=== PATIENT | male | born 1970 | race Caucasian/White ===

== ENCOUNTER 2018-03-27 11:38 | Inpatient (IN) | payer OTHER ==
[~2018-03-27] VITALS: Ht 188 cm; Wt 63.5 kg
--- NOTE | 2018-03-27 23:54 | HHI.HP ---
HPI Service [facility] Primary Care Physician Unknown Admission Diagnosis Diagnoses: Chief Complaint: Empyema Travel History International Travel<30 Days: No Contact w/Intl Traveler <30 Da: No History of Present Illness 47-year-old male with a history of asthma, COPD presented on 03/15 [facility] with complaints of chest pain that radiated to left armpit for a duration of 2 weeks. Patient was found to have a mass on a CT scan of the chest that was a collection of fluid 5 cm and found to be infectious. A pigtail catheter was placed by CT guided for drainage of an abscess, patient was treated with Levaquin, vancomycin and cefepime for positive mycoplasma and pseudomonas. Vancomycin was discontinued on 03/23. Patient was transferred to [place] for a possible cardiothoracic consult. Patient currently denies any fevers or chills and states if he stays on top of his pain medication he is pain -free. Review of Systems Except as stated in HPI: all other systems reviewed are Neg Past Family Social History Past Medical History Asthma COPD Past Surgical History Left ankle surgery Allergies: Coded Allergies: No Known Allergies (Unverified , 03/27/18) Family History Patient denies any family history no heart disease or cancer. Social History Tobacco use: 1 PPD Alcohol use: 18 pack a day Illicit drug use: Uri Physical Exam Physical Exam GENERAL: This is a well-nourished, well-developed patient, in no apparent distress. SKIN: No rashes, ecchymoses or lesions. Cool and dry. HEAD: Atraumatic. Normocephalic. No temporal or scalp tenderness. EYES: Pupils equal round and reactive. Extraocular motions intact. CARDIOVASCULAR: Regular rate and rhythm without murmurs, gallops, or rubs. Left chest wall tenderness RESPIRATORY: Clear to auscultation. Breath sounds equal bilaterally. No wheezes , rales, or rhonchi. GASTROINTESTINAL: Abdomen soft, non-tender, nondistended. MUSCULOSKELETAL: Extremities without clubbing, cyanosis, or edema. No joint tenderness, effusion, or edema noted. NEUROLOGICAL: Awake and alert. Normal speech. Caprini VTE Risk Assessment Caprini VTE Risk Assessment: No/Low Risk (score <= 1) Caprini Risk Assessment Model Point Value = 1 Point Value = 2 Point Value = 3 Point Value = 5 Age 41-60 Minor surgery BMI > 25 kg/m2 Swollen legs Varicose veins or History of unexplained or recurrent spontaneous Oral contraceptives or hormone replacement Sepsis (< 1 month) Serious lung disease, including pneumonia (< 1 month) Abnormal pulmonary function Acute myocardial infarction Congestive heart failure (< 1 month) History of inflammatory bowel disease Medical patient at bed rest Age 61-74 Arthroscopic surgery Major open surgery (> 45 min) Laparoscopic surgery (> 45 min) Malignancy Confined to bed (> 72 hours) Immobilizing plaster cast Central venous access Age >= 75 History of VTE Family history of VTE Factor V Leiden Prothrombin [id number] Lupus anticoagulant Anticardiolipin antibodies Elevated serum homocysteine Heparin-induced thrombocytopenia Other congenital or acquired thrombophilia Stroke (< 1 month) Elective arthroplasty Hip, pelvis, or leg fracture Acute spinal cord injury (< 1 month) Prophylaxis Regimen Total Risk Factor Score Risk Level Prophylaxis Regimen 0-1 Low Early ambulation 2 Moderate Order ONE of the following: *Sequential Compression Device (SCD) *Heparin 5000 units SQ BID 3-4 Higher Order ONE of the following medications: *Heparin 5000 units SQ TID *Enoxaparin/Lovenox 40 mg SQ daily (WT < 150 kg, CrCl > 30 mL/min) *Enoxaparin/Lovenox 30 mg SQ daily (WT < 150 kg, CrCl > 10-29 mL/min) *Enoxaparin/Lovenox 30 mg SQ BID (WT < 150 kg, CrCl > 30 mL/min) AND/OR *Sequential Compression Device (SCD) 5 or more Highest Order ONE of the following medications: *Heparin 5000 units SQ TID (Preferred with Epidurals) *Enoxaparin/Lovenox 40 mg SQ daily (WT < 150 kg, CrCl > 30 mL/min) *Enoxaparin/Lovenox 30 mg SQ daily (WT < 150 kg, CrCl > 10-29 mL/min) *Enoxaparin/Lovenox 30 mg SQ BID (WT < 150 kg, CrCl > 30 mL/min) AND *Sequential Compression Device (SCD) Assessment and Plan Assessment and Plan 47-year-old male with a history of asthma, COPD presented on 03/15 [facility] with complaints of chest pain that radiated to left armpit for a duration of 2 weeks. Patient was found to have a mass on a CT scan of the chest that was a collection of fluid 5 cm and found to be infectious. Empyema, suspected, patient was positive for Pseudomonas and mycoplasma Outpatient CT reveals a large fluid collection in the left chest. -Continue IV antibiotics cefepime and p.o. Levaquin -Consult infectious disease appreciate recommendations -Cardiothoracic surgery consult to be placed in a.m. -Pain management with p.o. [place] COPD, chronic, not in exacerbation -Duo nebs as needed Tobacco and alcohol abuse, chronic -Encouraged to quit -Continue Ativan p.o. for agitation -Nicotine patch DVT prophylaxis: SCDs Discussed Condition With Patient and RN Physician Certification 2 Midnight Certification Type: Admission for Inpatient Services Order for Inpatient Services The services are ordered in accordance with Medicare regulations or non- Medicare payer requirements, as applicable. In the case of services not specified as inpatient-only, they are appropriately provided as inpatient services in accordance with the 2-midnight benchmark. Estimated LOS (days): 2 days is the estimated time the patient will need to remain in the hospital, assuming treatment plan goals are met and no additional complications. Post-Hospital Plan: Home Mary Tao Mar 27, 2018 23:54
[2018-03-28] VITALS (8 sets, daily range): BP systolic 122–145; BP diastolic 68–88; PULSE 75–101; RESP 17–20; TEMP 97.2–98.4; O2SAT 94–99
[2018-03-28] MEDS ORDERED: NALOXONE HCL 0.4 MG/ML AMP IV PUSH PRN
[2018-03-28] MEDS ORDERED: SODIUM CHLORIDE 0.9% FLUSH 10 ML FLUSH IV FLUSH PRN
[2018-03-28] MEDS ORDERED: LORazepam 1 MG TAB PO PRN (00:45)
[2018-03-28] MEDS: ACETAMINOPHEN/HYDROcodone 325 MG/10 MG TAB PO PRN ×6 (01:42→19:58)
[2018-03-28] MEDS: LORazepam 1 MG TAB PO PRN ×5 (01:42→19:58)
[2018-03-28] MEDS: CEFEPIME INJ 2,000 MG in SODIUM CHLORIDE 0.9% INJ 100 ML IV SCH ×3 (01:43→22:01)
[2018-03-28] MEDS ORDERED: RESP: ALBUTEROL 2.5 MG/IPRATROPIUM 0.5 MG NEB (PRN) NEB (02:00)
[2018-03-28 05:32] LABS: AUTOMATED NEUTROPHIL # 3.6 TH/MM3 (1.8-7.7); BASOPHIL # 0.1 TH/MM3 (0-0.2); BASOPHIL % 1.3 % (0.0-2.0); EOSINOPHIL # 0.8 TH/MM3 (0-0.4); EOSINOPHIL % 10.6 % (0.0-4.0); HEMATOCRIT 41.8 % (39.0-51.0); HEMOGLOBIN 14.1 GM/DL (13.0-17.0); LYMPH % 25.5 % (9.0-44.0); LYMPHOCYTE # 1.9 TH/MM3 (1.0-4.8); MEAN CELL VOLUME 98.6 FL (80.0-100.0); MEAN CORPUSCULAR HEMOGLOBIN 33.1 PG (27.0-34.0); MEAN CORPUSCULAR HGB CONC 33.6 % (32.0-36.0); MEAN PLATELET VOLUME 8.8 FL (7.0-11.0); MONO % 14.9 % (0.0-8.0); MONOCYTE # 1.1 TH/MM3 (0-0.9); NEUT % 47.7 % (16.0-70.0); PLATELET COUNT 358 TH/MM3 (150-450); RED BLOOD COUNT 4.24 MIL/MM3 (4.50-5.90); RED CELL DISTRIBUTION WIDTH 13.2 % (11.6-17.2); WHITE BLOOD COUNT 7.6 TH/MM3 (4.0-11.0)
[2018-03-28 05:57] LABS: BICARBONATE 24.2 MEQ/L (21.0-32.0); CREATININE 0.52 MG/DL (0.60-1.30)
[2018-03-28] MEDS: LEVOFLOXACIN 500 MG TAB PO SCH (10:05)
[2018-03-28] MEDS: NICOTINE 14 MG/24 HR PATCH T-DERMAL SCH (10:06)
[2018-03-28] MEDS: REMOVE OLD PATCH T-DERMAL SCH (10:06)
[2018-03-28] MEDS: SODIUM CHLORIDE 0.9% FLUSH 10 ML FLUSH IV FLUSH SCH ×2 (11:01→19:59)
--- NOTE | 2018-03-28 11:17 | HHI.PR ---
Subjective Remarks Patient reports that left-sided chest pain continues. Requests increase in pain meds. Denies any nausea or vomiting. Reports shortness of breath has improved. Patient reports constipation. Most recent bowel movement 2 days ago denies abdominal pain. Patient requested regular diet Objective Vital Signs Date Time Temp Pulse Resp B/P (MAP) Pulse Ox O2 Delivery O2 Flow Rate FiO2 03/28/18 04:00 97.6 77 18 122/73 (89) 94 03/28/18 00:37 97.2 85 20 128/78 (95) 99 I/O 03/27/18 03/27/18 03/27/18 03/28/18 03/28/18 03/28/18 07:00 15:00 23:00 07:00 15:00 23:00 Intake Total 460 ml Balance 460 ml Intake Oral 360 ml IV Total 100 ml # Voids 2 # Bowel Movements 0 Result Diagram: 03/28/18 0459 03/28/18 0459 Objective Remarks GENERAL: Patient walking in room. Appears comfortable. SKIN: Warm and dry. HEAD: Normocephalic. EYES: No scleral icterus. No injection or drainage. NECK: Supple, trachea midline. No JVD. CARDIOVASCULAR: Regular rate and rhythm without murmurs, gallops, or rubs. RESPIRATORY: Intermittent wheezing on the left. No accessory muscle use. GASTROINTESTINAL: Abdomen soft, non-tender, nondistended. MUSCULOSKELETAL: No cyanosis, or edema. BACK: Nontender without obvious deformity. No CVA tenderness. A/P Assessment and Plan 47-year-old male with a history of asthma, COPD presented on 03/15 [facility] with complaints of chest pain that radiated to left armpit for a duration of 2 weeks. Patient was found to have a mass on a CT scan of the chest that was a collection of fluid 5 cm and found to be infectious. //Empyema, suspected, patient was positive for Pseudomonas and mycoplasma Outpatient CT reveals a large fluid collection in the left chest. -Continue IV antibiotics cefepime and p.o. Levaquin -Consult infectious disease appreciate recommendations -Cardiothoracic surgery consult to be placed in a.m. -Pain management with p.o. [place] = Pain meds increased as requested. Consulted cardiothoracic surgery. Consult infectious disease for ongoing IV antibiotics. Appreciate tanning consultant assistance. //Patient reports constipation. Laxatives ordered. //COPD, chronic, not in exacerbation -Duo nebs as needed //Tobacco and alcohol abuse, chronic -Encouraged to quit -Continue Ativan p.o. for agitation -Nicotine patch = Patient counseled on cessation. DVT prophylaxis: SCDs Discharge Planning Patient is self-pay. Continues on IV antibiotics We will need ID and cardiothoracic surgery clearance Patient is a transfer from [facility] Fredo Chambers MD Mar 28, 2018 11:17
--- NOTE | 2018-03-28 17:36 | PD.ID.CON ---
History of Present Illness Service Infectious disease Consult Requested By Dr Chambers Reason for Consult Evaluation and management of left upper lobe lung abscess/empyema Primary Care Physician Unknown Diagnoses: History of Present Illness Mr. Irving is a 47-year-old male with long-standing history of smoking, active smoker with known history of COPD, bullous emphysema, chronic alcoholism and heavy 8-10 beers per day, known history of bronchial asthma, intermittent steroid use. With this background patient presented to [facility] with progressive dyspnea, left-sided chest pain radiating into his arm exacerbated in the last 2 weeks prior to admission patient reported at that time that his pain was constant aggravated by coughing and deep breathing. He also complained of subjective fever and chills at that time. Patient underwent a CT chest which did not reveal any emboli but there was a 6 cm left upper lobe mass posteriorly with chest wall invasion compatible with an infected bullae or abscess versus neoplasm. The patient underwent a CT-guided drainage tube placement successfully with purulent drainage extracted with initial culture revealing heavy growth of pseudomonas aeruginosa sensitive to cefepime and Levaquin. Patient continued to do well and when his chest tube was removed repeat CT of the chest was performed which showed remnant disease. Patient was transferred to [facility] for cardiothoracic surgery evaluation for decortication if possible of this lung mass. In addition records reveal that his mycoplasma serology was positive IgM antibody. Patient reports that he had a CT-guided drainage but does not seem to remember having a bronchoscopy at the other hospital. Infectious diseases consulted for evaluation and management of left upper lobe lung mass and empyema. Review of Systems Constitutional: COMPLAINS OF: Fever, Chills, DENIES: Diaphoretic episodes, Fatigue, Weight gain, Weight loss, Dizziness, Change in appetite, Night Sweats Endocrine: DENIES: Heat/cold intolerance, Polydipsia, Polyuria, Polyphagia Eyes: DENIES: Blurred vision, Diplopia, Eye inflammation, Eye pain, Vision loss , Photosensitivity, Double Vision Ears, nose, mouth, throat: DENIES: Tinnitus, Hearing loss, Vertigo, Nasal discharge, Oral lesions, Throat pain, Hoarseness, Ear Pain, Running Nose, Epistaxis, Sinus Pain, Toothache, Odynophagia Respiratory: DENIES: Apneas, Cough, Snoring, Wheezing, Hemoptysis, Sputum production, Shortness of breath Cardiovascular: COMPLAINS OF: Chest pain, DENIES: Palpitations, Syncope, Dyspnea on Exertion, PND, Lower Extremity Edema, Orthopnea, Claudication Gastrointestinal: DENIES: Abdominal pain, Black stools, Bloody stools, Constipation, Diarrhea, Nausea, Vomiting, Difficulty Swallowing, Anorexia Genitourinary: DENIES: Sexual dysfunction, Urinary frequency, Urinary incontinence, Urgency, Hematuria, Dysuria, Nocturia, Penile Discharge, Testicular Pain, Testicular Swelling Musculoskeletal: DENIES: Joint pain, Muscle aches, Stiffness, Joint Swelling, Back pain, Neck pain Integumentary: DENIES: Abnormal pigmentation, Nail changes, Pruritus, Rash Hematologic/lymphatic: DENIES: Bruising, Lymphadenopathy Immunologic/allergic: DENIES: Eczema, Urticaria Neurologic: DENIES: Abnormal gait, Headache, Localized weakness, Paresthesias, Seizures, Speech Problems, Tremor, Poor Balance Psychiatric: DENIES: Anxiety, Confusion, Mood changes, Depression, Hallucinations, Agitation, Suicidal Ideation, Homicidal Ideation, Delusions Except as stated in HPI: all other systems reviewed are Neg Past Family Social History Allergies: Coded Allergies: No Known Allergies (Unverified , 03/27/18) Past Medical History Asthma COPD Alcohol abuse Tobacco abuse Pseudomonas empyema Positive mycoplasma serology Past Surgical History Ankle surgery CT-guided aspiration of the left upper lobe abscess. Reported Medications Mar from [facility] reviewed patient was on cefepime and Levaquin. It also appears that he may have been on vancomycin at some point. Active Ordered Medications Current Medications Medications (Trade) Dose Ordered Sig/Keyla Route Start Time Stop Time Status Last Admin (NS Flush) 2 ml UNSCH PRN IV FLUSH 03/28/18 00:00 (NS Flush) 2 ml BID IV FLUSH 03/28/18 09:00 03/28/18 11:01 (Narcan Inj) 0.4 mg UNSCH PRN IV PUSH 03/28/18 00:00 ([place] 10-325 Mg) 1 tab Q4H PRN PO 03/28/18 00:45 03/28/18 15:15 Cefepime HCl 2000 mg/Sodium Chloride 100 ml @ 200 mls/hr Q12H IV 03/28/18 02:00 03/28/18 14:10 (Levaquin) 500 mg DAILY PO 03/28/18 09:00 03/28/18 10:05 (Ativan) 1 mg Q4H PRN PO 03/28/18 01:15 03/28/18 15:15 (Duoneb Neb) 1 ampule Q4HR NEB PRN NEB 03/28/18 02:00 (Habitrol 14 Mg Patch.24 Hr) 1 patch DAILY T-DERMAL 03/28/18 09:00 03/28/18 10:06 Miscellaneous Information 1 DAILY T-DERMAL 03/28/18 09:00 03/28/18 10:06 (Roxicodone) 5 mg Q4H PRN PO 03/28/18 11:30 Family History Reviewed and noncontributory to current infectious disease problem. Social History Heavy's cigarette smoking for many years did not quantify. Drinks approximately 10-12 beers every day for many years. Used to live in an until recently when he moved with his girlfriend. He does not work at the present time. Physical Exam Vital Signs Vital Signs Date Time Temp Pulse Resp B/P (MAP) Pulse Ox O2 Delivery O2 Flow Rate FiO2 03/28/18 12:00 98.0 92 17 144/88 (106) 95 03/28/18 09:30 101 03/28/18 08:00 98.4 91 17 128/68 (88) 96 03/28/18 04:00 97.6 77 18 122/73 (89) 94 03/28/18 00:37 97.2 85 20 128/78 (95) 99 Physical Exam GENERAL: This is a well-nourished, well-developed patient, in no apparent distress. SKIN: No rashes, ecchymoses or lesions. Cool and dry. HEAD: Atraumatic. Normocephalic. No temporal or scalp tenderness. EYES: Pupils equal round and reactive. Extraocular motions intact. No scleral icterus. No injection or drainage. ENT: Nose without bleeding, purulent drainage or septal hematoma. Throat without erythema, tonsillar hypertrophy or exudate. Uvula midline. Airway patent. NECK: Trachea midline. No JVD or lymphadenopathy. Supple, nontender, no meningeal signs. CARDIOVASCULAR: Regular rate and rhythm without murmurs, gallops, or rubs. RESPIRATORY: Clear to auscultation. Breath sounds equal bilaterally. No wheezes , rales, or rhonchi. GASTROINTESTINAL: Abdomen soft, non-tender, nondistended. No hepato-splenomegaly , or palpable masses. No guarding. MUSCULOSKELETAL: Extremities without clubbing, cyanosis, or edema. No joint tenderness, effusion, or edema noted. No calf tenderness. Negative Homans sign bilaterally. NEUROLOGICAL: Awake and alert. Cranial nerves II through XII intact. Motor and sensory grossly within normal limits. Five out of 5 muscle strength in all muscle groups. Normal speech. Psych cooperative IV line sites with no evidence of infection. Laboratory Laboratory Tests Test 03/28/18 04:59 White Blood Count 7.6 Red Blood Count 4.24 Hemoglobin 14.1 Hematocrit 41.8 Mean Corpuscular Volume 98.6 Mean Corpuscular Hemoglobin 33.1 Mean Corpuscular Hemoglobin Concent 33.6 Red Cell Distribution Width 13.2 Platelet Count 358 Mean Platelet Volume 8.8 Neutrophils (%) (Auto) 47.7 Lymphocytes (%) (Auto) 25.5 Monocytes (%) (Auto) 14.9 Eosinophils (%) (Auto) 10.6 Basophils (%) (Auto) 1.3 Neutrophils # (Auto) 3.6 Lymphocytes # (Auto) 1.9 Monocytes # (Auto) 1.1 Eosinophils # (Auto) 0.8 Basophils # (Auto) 0.1 CBC Comment DIFF FINAL Differential Comment Blood Urea Nitrogen 8 Creatinine 0.52 Random Glucose 81 Calcium Level 9.0 Sodium Level 142 Potassium Level 4.3 Chloride Level 109 Carbon Dioxide Level 24.2 Anion Gap 9 Estimat Glomerular Filtration Rate 170 Result Diagram: 03/28/18 0459 03/28/18 0459 Imaging Last Impressions Chest X-Ray 03/28/18 0000 Signed Impressions: CONCLUSION: 5 cm mass at left lung apex. Further evaluation with chest CT with contrast rec ommended. Assessment and Plan Assessment and Plan Left lung mass abscess. s/p IR guided drainage. Pseudomonas on cultures Empyema Necessitans. ? Lung mass. Persistent left lung mass concerning for cancer given extensive history of smoking COPD with bullous changes Extensive smoking history Alcoholism possible aspiration pneumonia. Recommendations: Continue cefepime IV increased to pseudomonal dose Continue Levaquin Consult cardiothoracic surgery Chest x-ray stat CT chest with IV contrast to help delineate the size of abscess and chest wall invasion etc as reported on outside hospital imaging. OSH imaging split into multiple single page single slice imaging difficult to appreciate without scrolling the extent of the disease. Patient consented to HIV Check HIV antibody screen Check Hepatitis profile. 2D ECHO to be officially reviewed by our ECHO department. Or obtain official paper report from [facility]. Will follow prn over the weekend. Please call sooner if any clinical changes in the interim. dw patient. Girlfriend in room who reports she is a Communication Equipment Mechanic (remains to be confirmed) Melia Awad MD Mar 28, 2018 17:36
--- NOTE | 2018-03-28 17:54 | RADRPT ---
EXAM DATE: 03/28/2018 5:40 PM EDT AGE/SEX: 47 years / Male INDICATIONS: Shortness of breath. CLINICAL DATA: This is the patient's initial encounter. Patient reports that signs and symptoms have been present for 1 day and indicates a pain score of 0/10. MEDICAL/SURGICAL HISTORY: Asthma. Chronic obstructive pulmonary disease. Smoker. None. COMPARISON: No prior exams available for comparison. FINDINGS: There is a 5 cm mass in the left lung apex. There is underlying emphysema. Heart size normal. Small p leural effusions. CONCLUSION: 5 cm mass at left lung apex. Further evaluation with chest CT with contrast recommended. Electronically signed by: Ten Sousa MD 03/28/2018 5:53 PM EDT
[2018-03-28 19:31] LABS: ALBUMIN 3.3 GM/DL (3.4-5.0); DIRECT BILIRUBIN ADULT 0.1 MG/DL (0.0-0.2)
[2018-03-28] MEDS ORDERED: IOHEXOL 350 MG/ML 10 ML VIAL (for RAD DIAG) IVCONTRAST ONE (19:31)
[2018-03-28 19:33] LABS: INDIRECT BILIRUBIN 0.1 MG/DL (0.0-0.8); TOTAL BILIRUBIN ADULT 0.2 MG/DL (0.2-1.0); TOTAL PROTEIN 7.1 GM/DL (6.4-8.2)
--- NOTE | 2018-03-28 20:01 | RADRPT ---
EXAM DATE: 03/28/2018 7:34 PM EDT AGE/SEX: 47 years / Male INDICATIONS: Evaluate lung abscess. CLINICAL DATA: This is the patient's initial encounter. Patient reports that signs and symptoms have been present for 1 month and indicates a pain score of 4/10. MEDICAL/SURGICAL HISTORY: Cardiovascular disease. Asthma. Chronic obstructive pulmonary disease. None. RADIATION DOSE: 5.09 CTDI (mGy) COMPARISON: No prior exams available for comparison. EXTERNAL: TECHNIQUE: Multiple contiguous axial images were obtained through the chest during bolus infusion of 65 ml Omnipaque 350 (iohexol) nonionic water-soluble contrast as a single exam dose. Images were obtained in suspended respiration using multiple row detector helical technique. Using automated exp osure control and adjustment of the mA and/or kV according to patient size, radiation dose was kept a s low as reasonably achievable to obtain optimal diagnostic quality images. DICOM format image data is available electronically for review and comparison. FINDINGS: There is a mass at the left lung apex measuring up to 6.2 x 7.9 cm. Mass appears partially necrotic. There is extension into the extrapleural space and probably also into the intercostal space between t he third and fourth ribs posteriorly. There is centrilobular and apical bullous emphysema. There is a left AP window lymph node enlarged to 1.2 cm. There is also contralateral mediastinal adenopathy with an anterior right pretracheal lymph node measuring up to 1.8 x 0.8 cm and a prevascular lymph node measuring up to 11 mm. No pleural or pericardial effusion. No acute findings in the upper abdomen. No acute bony abnormaliti es. CONCLUSION: 1. Mass in left lung apex measuring up to 7.9 cm. Mildly enlarged ipsilateral and contralateral medi astinal lymph nodes, probably a stage III malignancy. There is some central tumor necrosis. There is centrilobular and apical bullous emphysema. 2. 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 Electronically signed by: Ten Sousa MD 03/28/2018 8:00 PM EDT
[2018-03-29] VITALS (10 sets, daily range): BP systolic 116–138; BP diastolic 64–90; PULSE 70–97; RESP 17–19; TEMP 97.3–98.9; O2SAT 97–98
[2018-03-29] MEDS: LORazepam 1 MG TAB PO PRN ×6 (00:04→21:03)
[2018-03-29] MEDS: ACETAMINOPHEN/HYDROcodone 325 MG/10 MG TAB PO PRN ×6 (00:05→21:03)
[2018-03-29] MEDS: CEFEPIME INJ 2,000 MG in SODIUM CHLORIDE 0.9% INJ 100 ML IV SCH ×3 (05:09→22:00)
[2018-03-29] MEDS: NICOTINE 14 MG/24 HR PATCH T-DERMAL SCH (08:06)
[2018-03-29] MEDS: REMOVE OLD PATCH T-DERMAL SCH (08:08)
[2018-03-29] MEDS: LEVOFLOXACIN 500 MG TAB PO SCH (08:09)
[2018-03-29] MEDS: SODIUM CHLORIDE 0.9% FLUSH 10 ML FLUSH IV FLUSH SCH ×2 (08:11→19:40)
[2018-03-29] MEDS ORDERED: ALBUTEROL SULFATE 90 MCG/ACT HFA 8 GM INHALER INH PRN (10:15)
--- NOTE | 2018-03-29 11:36 | PD.CAR.PN ---
CVT Progress Note Subjective/Hospital Course: Pt examined and chart reviewed. Findings discussed with patient and significant other. No further drainage procedure necessary. Needs biopsy of the left upper lobe mass to establish etiology. Consider IR evaluation. Objective: Vital Signs Date Time Temp Pulse Resp B/P (MAP) Pulse Ox O2 Delivery O2 Flow Rate FiO2 03/29/18 09:00 92 03/29/18 08:00 97.4 89 18 130/88 (102) 97 03/29/18 04:55 18 03/29/18 04:28 97.3 83 18 120/76 (91) 98 03/29/18 04:00 70 03/29/18 00:04 97.9 83 17 116/66 (83) 98 03/29/18 00:00 79 03/28/18 20:22 98.1 89 18 145/88 (107) 97 03/28/18 20:00 100 03/28/18 16:00 97.7 75 19 144/77 (99) 99 03/28/18 12:00 98.0 92 17 144/88 (106) 95 Result Diagram: 03/28/18 0459 03/28/18 0459 Garry Jeffery MD Mar 29, 2018 11:36
--- NOTE | 2018-03-29 11:39 | HHI.PR ---
Subjective Remarks Patient reports constipation is resolved. Reports breathing is stable, however did have some wheezing overnight, would like his rescue inhaler instead of receiving nebs. Reports chest pain is stable. Denies any nausea or vomiting. Objective Vital Signs Date Time Temp Pulse Resp B/P (MAP) Pulse Ox O2 Delivery O2 Flow Rate FiO2 03/29/18 09:00 92 03/29/18 08:00 97.4 89 18 130/88 (102) 97 03/29/18 04:55 18 03/29/18 04:28 97.3 83 18 120/76 (91) 98 03/29/18 04:00 70 03/29/18 00:04 97.9 83 17 116/66 (83) 98 03/29/18 00:00 79 03/28/18 20:22 98.1 89 18 145/88 (107) 97 03/28/18 20:00 100 03/28/18 16:00 97.7 75 19 144/77 (99) 99 03/28/18 12:00 98.0 92 17 144/88 (106) 95 I/O 03/28/18 03/28/18 03/28/18 03/29/18 03/29/18 03/29/18 07:00 15:00 23:00 07:00 15:00 23:00 Intake Total 460 ml 1225 ml 880 ml Output Total 550 ml Balance 460 ml 675 ml 880 ml Intake Oral 360 ml 1025 ml 780 ml IV Total 100 ml 200 ml 100 ml Output Urine Total 550 ml # Voids 2 2 # Bowel Movements 0 0 Result Diagram: 03/28/18 0459 03/28/18 0459 Objective Remarks GENERAL: Patient walking in room. Appears comfortable. SKIN: Warm and dry. HEAD: Normocephalic. EYES: No scleral icterus. No injection or drainage. NECK: Supple, trachea midline. No JVD. CARDIOVASCULAR: Regular rate and rhythm without murmurs, gallops, or rubs. RESPIRATORY: Intermittent wheezing bilaterally. No accessory muscle use. GASTROINTESTINAL: Abdomen soft, non-tender, nondistended. MUSCULOSKELETAL: No cyanosis, or edema. BACK: Nontender without obvious deformity. No CVA tenderness. A/P Assessment and Plan 47-year-old male with a history of asthma, COPD presented on 03/15 [facility] with complaints of chest pain that radiated to left armpit for a duration of 2 weeks. Patient was found to have a mass on a CT scan of the chest that was a collection of fluid 5 cm and found to be infectious. //Empyema, suspected, patient was positive for Pseudomonas and mycoplasma Outpatient CT reveals a large fluid collection in the left chest. -Continue IV antibiotics cefepime and p.o. Levaquin -Consult infectious disease appreciate recommendations -Cardiothoracic surgery consult to be placed in a.m. -Pain management with p.o. [place] = Pain meds increased as requested. Consulted cardiothoracic surgery. Consult infectious disease for ongoing IV antibiotics. Appreciate practice management consultant assistance. = 03/29. Continue antibiotics as per infectious disease. Discussed with cardiothoracic surgery. No significant fluid. Will proceed with CT-guided biopsy of left lung mass. //Patient reports constipation. Resolved after laxatives. //COPD, chronic, not in exacerbation -Duo nebs as needed. Rescue inhaler as needed. //Tobacco and alcohol abuse, chronic -Encouraged to quit -Continue Ativan p.o. for agitation -Nicotine patch = Patient counseled on cessation. DVT prophylaxis: SCDs Discharge Planning Patient is self-pay. Continues on IV antibiotics We will need ID and cardiothoracic surgery clearance Patient is a transfer from [facility] Hopefully after biopsy, if patient is stable can transfer back to [facility] Fredo Chambers MD Mar 29, 2018 11:39
--- NOTE | 2018-03-29 13:19 | MB ---
cc: Garry Jeffery MD DATE: 03/29/2018 REASON FOR CONSULTATION: Left lung empyema. HISTORY OF PRESENT ILLNESS: Mr. Irving is a 47-year-old gentleman transferred from [facility] for further evaluation at [place]. He presented with complaints of chest pain with radiation to the left armpit for 2-3 weeks. Following evaluation at [facility], he underwent a CT of the lung, which demonstrated a 5 cm mass, which was thought to be an infectious fluid loculation. He underwent percutaneous drainage there and was sent here for further management for treatment of empyema. Following admission here, he has undergone a repeat chest CT which to ok demonstrates a left upper lobe lung mass with an associated mediastinal adenopathy in the setting of severe bullous emphysema. No fluid loculations or additional fluid pockets are identified. PAST MEDICAL HISTORY: 1. Significant for asthma. 2. Chronic obstructive pulmonary disease. 3. Chronic nicotine use. 4. Chronic alcohol use. PAST SURGICAL HISTORY: Remarkable for ankle surgery, as well as a CT-guided aspiration of the fluid as described above. ALLERGIES: PATIENT REPORTS NO KNOWN DRUG ALLERGIES. SOCIAL HISTORY: Remarkable for heavy cigarette smoking for many years, 1-2 packs per day, as well as 12-18 beers a day. Denies any illicit drug use. FAMILY HISTORY: Noncontributory. HOME MEDICATIONS: None. REVIEW OF SYSTEMS: As above, all other parameters are negative. PHYSICAL EXAMINATION: VITAL SIGNS: Today he is 187 cm tall, weighs 64 kilos, blood pressure is 130/88 with a heart rate of 89, which is regular, respiratory rate is 18. He is afebrile. HEENT: Normocephalic, atraumatic. Pupils round and reactive. Extraocular muscles intact. NECK: No cervical lymphadenopathy, carotid bruits or JVD. CARDIOVASCULAR: Regular rate and rhythm. Normal S1, S2, without gallops, rubs, or murmurs. LUNGS: Clear to auscultation bilaterally with good air exchange. ABDOMEN: Soft, nontender, nondistended. Normoactive bowel sounds. No hepatosplenomegaly. EXTREMITIES: Bilateral lower extremity pulses are intact without cyanosis, clubbing or edema. No venous varicosities. NEUROLOGIC: Neurologically intact with no focal deficits. IMPRESSION: 1. Left upper lobe lung mass suspicious for underlying malignancy. 2. Mediastinal adenopathy. 3. Chronic nicotine use. 4. Chronic alcohol use. 5. Chronic obstructive pulmonary disease. 6. Bullous emphysema. PLAN: The CT findings as well as clinical findings were discussed in detail with the patient and his significant other. At this point, I do not see any further fluid collections or fluid in the left side that would require surgical drainage. The concern remains of an underlying malignancy represented by the large left upper lobe mass and mediastinal adenopathy. At this point my recommendation would be to consult interventional radiology for possible percutaneous biopsy of the left upper lobe mass and subsequent therapy depending upon the histologic findings. No surgical procedures planned at this time. Thank you for allowing me to participate in the care of this patient. MD BARRETT CannonK/TL , 11:41 AM , 01:17 PM
[2018-03-30] VITALS (9 sets, daily range): BP systolic 100–140; BP diastolic 68–89; PULSE 74–91; RESP 16–19; TEMP 97.7–98.5; O2SAT 96–98
[2018-03-30] MEDS: LORazepam 1 MG TAB PO PRN ×6 (01:00→22:28)
[2018-03-30] MEDS: ACETAMINOPHEN/HYDROcodone 325 MG/10 MG TAB PO PRN ×6 (01:01→22:28)
[2018-03-30] MEDS: CEFEPIME INJ 2,000 MG in SODIUM CHLORIDE 0.9% INJ 100 ML IV SCH ×3 (05:09→17:30)
[2018-03-30 07:42] LABS: AUTOMATED NEUTROPHIL # 3.9 TH/MM3 (1.8-7.7); BASOPHIL # 0.1 TH/MM3 (0-0.2); BASOPHIL % 1.4 % (0.0-2.0); EOSINOPHIL # 1.1 TH/MM3 (0-0.4); EOSINOPHIL % 13.8 % (0.0-4.0); HEMATOCRIT 42.4 % (39.0-51.0); HEMOGLOBIN 14.2 GM/DL (13.0-17.0); LYMPH % 21.7 % (9.0-44.0); LYMPHOCYTE # 1.8 TH/MM3 (1.0-4.8); MEAN CELL VOLUME 99.3 FL (80.0-100.0); MEAN CORPUSCULAR HEMOGLOBIN 33.3 PG (27.0-34.0); MEAN CORPUSCULAR HGB CONC 33.5 % (32.0-36.0); MONO % 14.5 % (0.0-8.0); MONOCYTE # 1.2 TH/MM3 (0-0.9); NEUT % 48.6 % (16.0-70.0); PLATELET COUNT 353 TH/MM3 (150-450); RED BLOOD COUNT 4.27 MIL/MM3 (4.50-5.90); RED CELL DISTRIBUTION WIDTH 13.3 % (11.6-17.2); WHITE BLOOD COUNT 8.1 TH/MM3 (4.0-11.0)
[2018-03-30] MEDS: REMOVE OLD PATCH T-DERMAL SCH (07:59)
[2018-03-30] MEDS: NICOTINE 14 MG/24 HR PATCH T-DERMAL SCH (07:59)
[2018-03-30] MEDS: SODIUM CHLORIDE 0.9% FLUSH 10 ML FLUSH IV FLUSH SCH ×2 (08:00→20:11)
[2018-03-30] MEDS: LEVOFLOXACIN 500 MG TAB PO SCH (08:00)
[2018-03-30 08:04] LABS: BICARBONATE 24.8 MEQ/L (21.0-32.0); CALCIUM 8.8 MG/DL (8.5-10.1); CREATININE 0.54 MG/DL (0.60-1.30); PHOSPHORUS 5.3 MG/DL (2.5-4.9)
[2018-03-30 11:20] LABS: PROTHROMBIN TIME - PATIENT 9.9 SEC (9.8-11.6)
--- NOTE | 2018-03-30 11:45 | HHI.PR ---
Subjective Remarks Patient says he is feeling all right. Reports chest pain under control. Denies any nausea or vomiting. Objective Vital Signs Date Time Temp Pulse Resp B/P (MAP) Pulse Ox O2 Delivery O2 Flow Rate FiO2 03/30/18 08:00 97.7 74 19 140/89 (106) 97 03/30/18 04:31 97.8 88 16 100/68 (79) 98 03/30/18 04:25 80 03/30/18 00:09 98.0 91 17 118/82 (94) 96 03/30/18 00:06 79 03/29/18 20:40 98.4 97 18 120/64 (82) 98 03/29/18 20:02 90 03/29/18 16:00 98.9 90 18 122/86 (98) 97 03/29/18 12:00 97.7 95 19 138/90 (106) 98 I/O 03/29/18 03/29/18 03/29/18 03/30/18 03/30/18 03/30/18 06:59 14:59 22:59 06:59 14:59 22:59 Intake Total 880 ml 1000 ml 980 ml Balance 880 ml 1000 ml 980 ml Intake Oral 780 ml 900 ml 780 ml IV Total 100 ml 100 ml 200 ml # Voids 2 7 3 # Bowel Movements 1 1 Result Diagram: 03/30/18 0715 03/30/18 0715 Objective Remarks GENERAL: Patient walking in room. Appears comfortable. Exam unchanged. SKIN: Warm and dry. HEAD: Normocephalic. EYES: No scleral icterus. No injection or drainage. NECK: Supple, trachea midline. No JVD. CARDIOVASCULAR: Regular rate and rhythm without murmurs, gallops, or rubs. RESPIRATORY: Intermittent wheezing bilaterally. No accessory muscle use. GASTROINTESTINAL: Abdomen soft, non-tender, nondistended. MUSCULOSKELETAL: No cyanosis, or edema. BACK: Nontender without obvious deformity. No CVA tenderness. A/P Assessment and Plan 47-year-old male with a history of asthma, COPD presented on 03/15 [facility] with complaints of chest pain that radiated to left armpit for a duration of 2 weeks. Patient was found to have a mass on a CT scan of the chest that was a collection of fluid 5 cm and found to be infectious. //Empyema, suspected, patient was positive for Pseudomonas and mycoplasma Outpatient CT reveals a large fluid collection in the left chest. -Continue IV antibiotics cefepime and p.o. Levaquin -Consult infectious disease appreciate recommendations -Cardiothoracic surgery consult to be placed in a.m. -Pain management with p.o. [place] = Pain meds increased as requested. Consulted cardiothoracic surgery. Consult infectious disease for ongoing IV antibiotics. Appreciate category consultant assistance. = 03/29. Continue antibiotics as per infectious disease. Discussed with cardiothoracic surgery. No significant fluid. Will proceed with CT-guided biopsy of left lung mass. = 03/30. [place] CT-guided biopsy of lung mass. Cardiothoracic surgery and ID following. Appreciate assistance. //Patient reports constipation. Resolved after laxatives. //COPD, chronic, not in exacerbation -Duo nebs as needed. Rescue inhaler as needed. //Tobacco and alcohol abuse, chronic -Encouraged to quit -Continue Ativan p.o. for agitation -Nicotine patch = Patient counseled on cessation. DVT prophylaxis: SCDs Discharge Planning Patient is self-pay. Continues on IV antibiotics We will need ID and cardiothoracic surgery clearance Patient is a transfer from [facility] Hopefully after biopsy, if patient is stable can transfer back to [facility] Fredo Chambers MD Mar 30, 2018 11:45
[2018-03-30] MEDS: D5-1/2 NS + KCL 20 MEQ INJ 1,000 ML IV SCH (12:11)
[2018-03-30] MEDS ORDERED: fentaNYL CITRATE 250 MCG/5 ML AMP ONE (14:57)
[2018-03-30] MEDS ORDERED: MIDAZOLAM HCL 5 MG/5 ML VIAL ONE (14:57)
--- NOTE | 2018-03-30 15:52 | PD.RAD ---
Post CT Procedure Prog Note Procedure Date: Mar 30, 2018 Supervising Radiologist: Mumtaz Mccollum Anesthesia: Conscious Sedation Plan of Activity Patient to Unit: ROPU Patient Condition: Good See PACS Report for procedural detail/treatment Mumtaz Mccollum MD Mar 30, 2018 15:52
[2018-03-30] MEDS ORDERED: LIDOCAINE HCL 1% 10 ML VIAL SQ ONE (18:03)
--- NOTE | 2018-03-30 18:26 | RADRPT ---
EXAM DATE: 03/30/2018 6:07 PM EDT AGE/SEX: 47 years / Male INDICATIONS: Post left lung biopsy. CLINICAL DATA: This is the patient's subsequent encounter. Patient reports that signs and symptoms h ave been present for 3 days and indicates a pain score of 5/10. MEDICAL/SURGICAL HISTORY: . Asthma. Chronic obstructive pulmonary disease. Smoker. None. COMPARISON: [facility] [place], CHEST SINGLE AP, 03/28/2018. [facility] [place], CT NEEDLE BIOPSY LUNG, LEFT, 03/30/2018. . FINDINGS: Portable upright expiratory view of the chest demonstrates a normal-sized cardiac silhouette. There i s masslike opacity at the left lung apex with bullous changes at the left lung apex. No pneumothorax is identified. CONCLUSION: 1. There is a lucency at the left lung apex correlating with the a large bulla on the a prior CT. Ho wever, no pneumothorax is identified. 2. The left apical mass remains visualized. Electronically signed by: Amarjit Richter MD 03/30/2018 6:25 PM EDT
[2018-03-31] VITALS: BP 135/89; PULSE 90; RESP 18; TEMP 96.7; O2SAT 94
[2018-03-31 00:05] VITALS: PULSE 92
[2018-03-31] MEDS: D5-1/2 NS + KCL 20 MEQ INJ 1,000 ML IV SCH ×2 (00:49→11:50)
[2018-03-31] MEDS: ACETAMINOPHEN/HYDROcodone 325 MG/10 MG TAB PO PRN ×6 (02:35→19:42)
[2018-03-31] MEDS: LORazepam 1 MG TAB PO PRN ×6 (02:35→19:42)
[2018-03-31] MEDS: CEFEPIME INJ 2,000 MG in SODIUM CHLORIDE 0.9% INJ 100 ML IV SCH ×3 (02:36→17:16)
[2018-03-31 04:00] VITALS: BP 127/80; PULSE 83; RESP 18; TEMP 98; O2SAT 96
--- NOTE | 2018-03-31 07:28 | RADRPT ---
EXAM DATE: 03/30/2018 5:42 PM EDT AGE/SEX: 47 years / Male INDICATIONS: LEFT LUNG MASS CLINICAL DATA: This is the patient's initial encounter. Patient reports that signs and symptoms have been present for 1 day and indicates a pain score of 0/10. MEDICAL/SURGICAL HISTORY: Chronic obstructive pulmonary disease. Asthma. . ORTHOPEDIC COMPARISON: . BIOPSY SITE: Left lung MEDICATION(S): 3MG midazolam (Versed) IV 150MCG fentanyl (Sublimaze) IV DEVICE(S): 20 gauge Temno core biopsy needle 19 gauge Temno needle . . PROCEDURE: CT guided Left lung biopsy Prior to the procedure informed consent was obtained. Any appropriate prior imaging studies were rev iewed. Using automated exposure control and adjustment of the mA and/or kV according to patient size , radiation dose was kept as low as reasonably achievable to obtain optimal diagnostic quality images . DICOM format image data is available electronically for review and comparison. The site was prepped in a sterile fashion. Full sterile technique was used, including cap, mask, rachelle rile gloves and gown and a large sterile sheet. Hand hygiene and 2% chlorhexidine and/or betadine/al cohol prep was utilized per protocol for cutaneous antisepsis. The skin and subcutaneous tissues wer e infiltrated with local anesthetic solution. With CT guidance the previously identified target was localized. Biopsy was performed using the presc ribed needle as above. Adequate hemostasis was obtained with compression at the puncture site. Follow-up CT scan reveals no pneumothorax. Conscious sedation was performed with the prescribed dosages and duration as above in the presence of an independent trained radiology nurse to assist in the monitoring of the patient. EKG and oximetry remained stable throughout the procedure. The patient tolerated the procedure well and there were no complications. The patient was sent to Radiology Outpatient Unit in stable condition. FINDINGS: CONCLUSION: 1. Uncomplicated CT guided biopsy. Electronically signed by: Mumtaz Mccollum MD 03/31/2018 7:27 AM EDT
[2018-03-31 08:00] VITALS: BP 125/78; PULSE 79; RESP 18; TEMP 98.2; O2SAT 94
[2018-03-31] MEDS: LEVOFLOXACIN 500 MG TAB PO SCH (08:42)
[2018-03-31] MEDS: SODIUM CHLORIDE 0.9% FLUSH 10 ML FLUSH IV FLUSH SCH ×2 (08:42→19:42)
[2018-03-31] MEDS: REMOVE OLD PATCH T-DERMAL SCH (08:42)
[2018-03-31] MEDS: NICOTINE 14 MG/24 HR PATCH T-DERMAL SCH (08:42)
[2018-03-31 12:00] VITALS: BP 136/85; PULSE 96; RESP 18; TEMP 97.9; O2SAT 99
--- NOTE | 2018-03-31 12:43 | HHI.PR ---
Subjective Remarks Patient says he is feeling well. Reports chest pain is under control. No nausea or vomiting. Regular bowel movements. No fevers. Objective Vital Signs Date Time Temp Pulse Resp B/P (MAP) Pulse Ox O2 Delivery O2 Flow Rate FiO2 03/31/18 08:00 98.2 79 18 125/78 (94) 94 03/31/18 04:00 98.0 83 18 127/80 (96) 96 03/31/18 00:05 92 03/31/18 00:00 96.7 90 18 135/89 (104) 94 03/30/18 20:00 88 03/30/18 20:00 98.1 91 18 138/89 (105) 97 03/30/18 16:37 83 18 122/77 (92) 97 03/30/18 16:07 98.5 84 16 132/85 (101) 97 03/30/18 16:07 98.5 84 16 132/88 (103) 97 I/O 03/30/18 03/30/18 03/30/18 03/31/18 03/31/18 03/31/18 07:00 15:00 23:00 07:00 15:00 23:00 Intake Total 880 ml 1460 ml 1460 ml Balance 880 ml 1460 ml 1460 ml Intake Oral 780 ml 1460 ml 360 ml IV Total 100 ml 1100 ml # Voids 3 8 3 # Bowel Movements 1 Result Diagram: 03/30/18 0715 03/30/18 0715 Objective Remarks GENERAL: Patient walking in room. Appears comfortable. Exam unchanged. SKIN: Warm and dry. Band-Aid left posterior chest at site of previous thoracentesis. HEAD: Normocephalic. EYES: No scleral icterus. No injection or drainage. NECK: Supple, trachea midline. No JVD. CARDIOVASCULAR: Regular rate and rhythm without murmurs, gallops, or rubs. RESPIRATORY: Intermittent wheezing bilaterally. No accessory muscle use. GASTROINTESTINAL: Abdomen soft, non-tender, nondistended. MUSCULOSKELETAL: No cyanosis, or edema. BACK: Nontender without obvious deformity. No CVA tenderness. A/P Assessment and Plan 47-year-old male with a history of asthma, COPD presented on 03/15 [facility] with complaints of chest pain that radiated to left armpit for a duration of 2 weeks. Patient was found to have a mass on a CT scan of the chest that was a collection of fluid 5 cm and found to be infectious. //Empyema, suspected, patient was positive for Pseudomonas and mycoplasma Outpatient CT reveals a large fluid collection in the left chest. -Continue IV antibiotics cefepime and p.o. Levaquin -Consult infectious disease appreciate recommendations -Cardiothoracic surgery consult to be placed in a.m. -Pain management with p.o. [place] = Pain meds increased as requested. Consulted cardiothoracic surgery. Consult infectious disease for ongoing IV antibiotics. Appreciate cancer program consultant assistance. = 03/29. Continue antibiotics as per infectious disease. Discussed with cardiothoracic surgery. No significant fluid. Will proceed with CT-guided biopsy of left lung mass. = 03/30. pending CT-guided biopsy of lung mass. Cardiothoracic surgery and ID following. Appreciate assistance. = 03/31. CT guided biopsy performed 03/30 with biopsy results pending. I discussed with cardiothoracic surgery, and no immediate interventions planned for this week. Plan is to transfer patient to [facility] where he can be followed by oncology and proceed with appropriate treatment plan pending biopsy results. Did you on antibiotics as per ID. //Patient reports constipation. Resolved after laxatives. //COPD, chronic, not in exacerbation -Duo nebs as needed. Rescue inhaler as needed. //Tobacco and alcohol abuse, chronic -Encouraged to quit -Continue Ativan p.o. for agitation -Nicotine patch = Patient counseled on cessation. DVT prophylaxis: SCDs Discharge Planning Patient is self-pay. Continues on IV antibiotics We will need ID and cardiothoracic surgery clearance Plan to transfer back to [facility]. Continue antibiotics as per ID Patient will need oncology, pulmonology to follow. Pending CT guided biopsy results Fredo Chambers MD Mar 31, 2018 12:43
--- NOTE | 2018-03-31 12:55 | HHI.DS ---
Discharge Summary Admission Date Mar 27, 2018 at 11:38 Admitting Diagnosis (1) Lung mass ICD Code: R91.8 - Other nonspecific abnormal finding of lung field (2) Empyema lung ICD Code: J86.9 - Pyothorax without fistula Procedures CT-guided lung biopsy. Brief History - From Admission 47-year-old male with a history of asthma, COPD presented on 03/15 [facility] with complaints of chest pain that radiated to left armpit for a duration of 2 weeks. Patient was found to have a mass on a CT scan of the chest that was a collection of fluid 5 cm and found to be infectious. A pigtail catheter was placed by CT guided for drainage of an abscess, patient was treated with Levaquin, vancomycin and cefepime for positive mycoplasma and pseudomonas. Vancomycin was discontinued on 03/23. Patient was transferred to [place] for a possible cardiothoracic consult. Patient currently denies any fevers or chills and states if he stays on top of his pain medication he is pain -free. CBC/BMP: 03/30/18 0715 03/30/18 0715 Significant Findings Laboratory Tests Test 03/28/18 20:41 03/30/18 07:15 03/30/18 10:57 Red Blood Count 4.27 MIL/MM3 (4.50-5.90) Monocytes (%) (Auto) 14.5 % (0.0-8.0) Eosinophils (%) (Auto) 13.8 % (0.0-4.0) Monocytes # (Auto) 1.2 TH/MM3 (0-0.9) Eosinophils # (Auto) 1.1 TH/MM3 (0-0.4) Creatinine 0.54 MG/DL (0.60-1.30) Albumin 3.0 GM/DL (3.4-5.0) Phosphorus Level 5.3 MG/DL (2.5-4.9) Imaging Last Impressions Chest X-Ray 03/30/18 1800 Signed Impressions: CONCLUSION: 1. There is a lucency at the left lung apex correlating with the a large bulla on the a prior CT. However, no pneumothorax is identified. 2. The left apical mass remains visualized. Lung Biopsy CT 03/30/18 0000 Signed Impressions: CONCLUSION: 1. Uncomplicated CT guided biopsy. Chest CT 03/28/18 0000 Signed Impressions: CONCLUSION: 1. Mass in left lung apex measuring up to 7.9 cm. Mildly enlarged ipsilateral and contralateral mediastinal lymph nodes, probably a stage III malignancy. The re is some central tumor necrosis. There is centrilobular and apical bullous em physema. 2. 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 Hospital Course Infectious disease was consulted and patient was continued on cefepime and levofloxacin for empyema. A thoracic surgery was also consulted and recommends CT-guided lung biopsy which was performed successfully. Pathology results from CT-guided lung biopsy are still pending and will need to be followed up at receiving facility. Patient will be transferred back to referring facility to follow with oncology and pulmonology. Patient will be continued on antibiotics as per ID. Stop date of antibiotics to be determined by receiving facility. For problem based summary from most recent progress note, please see below. 47-year-old male with a history of asthma, COPD presented on 03/15 [facility] with complaints of chest pain that radiated to left armpit for a duration of 2 weeks. Patient was found to have a mass on a CT scan of the chest that was a collection of fluid 5 cm and found to be infectious. //Empyema, suspected, patient was positive for Pseudomonas and mycoplasma Outpatient CT reveals a large fluid collection in the left chest. -Continue IV antibiotics cefepime and p.o. Levaquin -Consult infectious disease appreciate recommendations -Cardiothoracic surgery consult to be placed in a.m. -Pain management with p.o. [place] = Pain meds increased as requested. Consulted cardiothoracic surgery. Consult infectious disease for ongoing IV antibiotics. Appreciate protection consultant assistance. = 03/29. Continue antibiotics as per infectious disease. Discussed with cardiothoracic surgery. No significant fluid. Will proceed with CT-guided biopsy of left lung mass. = 03/30. pending CT-guided biopsy of lung mass. Cardiothoracic surgery and ID following. Appreciate assistance. = 03/31. CT guided biopsy performed 03/30 with biopsy results pending. I discussed with cardiothoracic surgery, and no immediate interventions planned for this week. Plan is to transfer patient to [facility] where he can be followed by oncology and proceed with appropriate treatment plan pending biopsy results. Did you on antibiotics as per ID. //Patient reports constipation. Resolved after laxatives. //COPD, chronic, not in exacerbation -Duo nebs as needed. Rescue inhaler as needed. //Tobacco and alcohol abuse, chronic -Encouraged to quit -Continue Ativan p.o. for agitation -Nicotine patch = Patient counseled on cessation. DVT prophylaxis: SCDs Discharge Planning Patient is self-pay. Continues on IV antibiotics We will need ID and cardiothoracic surgery clearance Plan to transfer back to [facility]. Continue antibiotics as per ID Patient will need oncology, pulmonology to follow. Pending CT guided biopsy results Pt Condition on Discharge: Good Discharge Disposition: Disch to Another Hospital Discharge Time: > 30 minutes Discharge Instructions DIET: Follow Instructions for: As Tolerated, No Restrictions Activities you can perform: Regular-No Restrictions Follow up Referrals: Oncology - Daily Pulmonology - Daily Additional Information Please see inpatient medication list. Current Medications Medications (Trade) Dose Ordered Sig/Keyla Route Start Time Stop Time Status Last Admin (NS Flush) 2 ml UNSCH PRN IV FLUSH 03/28/18 00:00 (NS Flush) 2 ml BID IV FLUSH 03/28/18 09:00 03/30/18 20:11 (Narcan Inj) 0.4 mg UNSCH PRN IV PUSH 03/28/18 00:00 ([place] 10-325 Mg) 1 tab Q4H PRN PO 03/28/18 00:45 03/31/18 10:40 (Levaquin) 500 mg DAILY PO 03/28/18 09:00 03/31/18 08:42 (Ativan) 1 mg Q4H PRN PO 03/28/18 01:15 03/31/18 10:40 (Duoneb Neb) 1 ampule Q4HR NEB PRN NEB 03/28/18 02:00 (Habitrol 14 Mg Patch.24 Hr) 1 patch DAILY T-DERMAL 03/28/18 09:00 03/31/18 08:42 Miscellaneous Information 1 DAILY T-DERMAL 03/28/18 09:00 03/31/18 08:42 (Proair Hfa Inh) 2 puff Q4H PRN INH 03/29/18 10:15 03/29/18 14:09 (Roxicodone) 5 mg Q3HR PRN PO 03/30/18 09:45 03/31/18 08:49 Potassium Chloride/Dextrose/ Sod Cl 1,000 ml @ 84 mls/hr [id number] IV 03/30/18 12:00 03/31/18 11:50 Cefepime HCl 2000 mg/Sodium Chloride 100 ml @ 200 mls/hr Q8H IV 03/31/18 02:00 03/31/18 10:00 Fredo Chambers MD Mar 31, 2018 12:55
[2018-03-31] MEDS ORDERED: MAGNESIUM HYDROXIDE SUSP 30 ML CUP PO ONE (18:30)
[2018-03-31] MEDS ORDERED: DOCUSATE SODIUM 50 MG/SENNA 8.6 MG TAB PO ONE (18:30)
== END 2018-03-31 20:29 | disposition short-term general hospital (02) | DRG 179 ==
LOC: N07B 11:38
PROVIDERS: ADMIT Internal Medicine; ATTEND Internal Medicine
PROC: 0BBL3ZX Excision of Left Lung, Percutaneous Approach, Diagnostic (ICD-10-PCS; principal; 2018-03-30)
DX: J86.9 Pyothorax without fistula (principal); J43.9 Emphysema, unspecified; F17.210 Nicotine dependence, cigarettes, uncomplicated; J45.20 Mild intermittent asthma, uncomplicated; F10.20 Alcohol dependence, uncomplicated; R59.0 Localized enlarged lymph nodes; K59.00 Constipation, unspecified
CPT/HCPCS: 32405; 71045; 71260; 77012; 80048; 80069; 80074; 80076; 83735; 85025; 85610; 87389; 88305; 88341; 99152; 99153; G0475; J0692; J2250; J3010; J3480; Q9967